=== PATIENT | male | born 1985 | race Caucasian/White ===

== ENCOUNTER 2021-01-09 10:38 | Day surgery (SDC) | payer OTHER ==
[2021-01-08 13:35] LABS: COVID AG,FIA SOURCE NASOPHARYNGEAL
[~2021-01-09] VITALS: Ht 177.8 cm; Wt 97.7 kg
[~2021-01-09 10:38] MED LIST: SODIUM CHLORIDE 0.9% 1,000 ML IV ONE; SODIUM CHLORIDE 0.9% 1,000 ML ONE
[2021-01-09] MEDS ORDERED: PROPOFOL 1% 20 ML VIAL IVP ONE (10:39)
[2021-01-09] MEDS ORDERED: LIDOCAINE/PF 2% 5 ML VIAL IM ONE (10:39)
== END 2021-01-09 13:30 | disposition home or self-care (01) ==
LOC: SURGERY 10:38
PROVIDERS: ATTEND Student in an Organized Health Care Education/Training Program
DX: K57.30 Diverticulosis of large intestine without perforation or abscess without bleeding (principal); K62.1 Rectal polyp; K29.50 Unspecified chronic gastritis without bleeding; B96.89 Other specified bacterial agents as the cause of diseases classified elsewhere; K63.89 Other specified diseases of intestine; K64.8 Other hemorrhoids; K26.9 Duodenal ulcer, unspecified as acute or chronic, without hemorrhage or perforation; K22.8 Other specified diseases of esophagus; K31.89 Other diseases of stomach and duodenum; Z79.899 Other long term (current) drug therapy; Z98.890 Other specified postprocedural states
CPT/HCPCS: 43239; 45380; 87426; 88305; 88312; 88313; C1769; C9803; J2704; J3490; J7030